=== PATIENT | female | born 2000 | race Native Hawaiian/Other Pacific Islander ===

== ENCOUNTER 2022-07-26 14:35 | Outpatient (CLI) | payer BC ==
[2022-07-26 15:07] LABS: POTASSIUM 3.9 mmol/L (3.6-5.2); SODIUM 136 mmol/L (136-145)
[2022-07-26 15:20] LABS: PLATELET COUNT 243 K/uL (152-353)
== END 2022-07-26 19:57 | disposition home or self-care (01) ==
LOC: LABW 14:35
PROVIDERS: ATTEND Nurse Practitioner Family
DX: R00.2 Palpitations (principal); R60.0 Localized edema
CPT/HCPCS: 36415; 80053; 82553; 83880; 84439; 84443; 84481; 84484; 85027; 86376; 93005; 93225